=== PATIENT | male | born 1980 | race Caucasian/White ===

== ENCOUNTER 2017-03-17 17:45 | Inpatient (IN) | payer OTHER ==
[~2017-03-17] VITALS: Ht 188 cm; Wt 97.5 kg
[2017-03-17 21:30] VITALS: BP 153/95
[2017-03-17] MEDS ORDERED: METHOCARBAMOL 750 MG TABLET PO PRN (21:30)
[2017-03-17] MEDS ORDERED: LOPERAMIDE HCL 2 MG CAPSULE PO PRN ×4 (21:30)
[2017-03-17] MEDS ORDERED: LORAZEPAM 1 MG TABLET PO PRN (21:30)
[2017-03-17] MEDS ORDERED: ONDANSETRON ODT 4 MG TAB.RAPDIS SL PRN (21:30)
[2017-03-17] MEDS ORDERED: MAGNESIUM HYDROXIDE 30 ML LIQUID UDC PO PRN ×2 (21:30)
[2017-03-17] MEDS ORDERED: MAG HYDROX/AL HYDROX/SIMETH 30 ML LIQUID UDC PO PRN ×2 (21:30)
[2017-03-17] MEDS ORDERED: ACETAMINOPHEN 325 MG TABLET PO PRN ×2 (21:30)
[2017-03-17] MEDS ORDERED: BUPRENORPHINE HCL 2 MG TAB.SUBL SL PRN ×2 (21:30)
[2017-03-17] MEDS ORDERED: MIRALAX 17 GM POWD.PACK PO PRN ×2 (21:30)
[2017-03-17] MEDS ORDERED: CLONIDINE HCL 0.1 MG TABLET PO PRN (21:30)
[2017-03-17] MEDS ORDERED: diphenhydrAMINE 50 MG CAPSULE PO PRN ×2 (21:30)
[2017-03-17] MEDS ORDERED: IBUPROFEN 600 MG TABLET PO PRN (21:30)
[2017-03-17] MEDS ORDERED: LORAZEPAM 2 MG/1 ML VIAL IM PRN ×2 (21:30→22:45)
[2017-03-17] MEDS ORDERED: HYDROXYZINE PAMOATE 25 MG CAPSULE PO PRN ×2 (21:30)
[2017-03-17] MEDS ORDERED: DICYCLOMINE HCL 20 MG TABLET PO PRN ×2 (21:30)
[2017-03-17] MEDS ORDERED: IBUPROFEN 400 MG TABLET PO PRN (21:30)
[2017-03-17] MEDS ORDERED: ONDANSETRON 4 MG/2 ML VIAL IM PRN ×2 (21:30)
--- NOTE | 2017-03-17 21:30 | NUR ---
PRE-ADMISSION NOTE: Patient assessed in intake office at 21:30 on 03/17/2017. Patient is ambulatory with steady gate, stable, A&Ox4, speech is soft and clear. Patient states that he is here for safety detox from Xanax, Methamphetamine, Heroin, Gabapentin. Patient states that he relapsed three months ago and his substances use has steadily increased since that time. Patient states that his last use was Heroin IV: " 2 grams at 16:30 on 03/17/17"; Methamphetamine IV and smoke: "0,25 grams at 09:30 on 03/17/17"; Gabapentin PO: "800 mg at 15:00 on 03/17/2017". Xanax PO: "2 mg at 18:00 on 03/17/2017". COWS 8, CIWA 7: Patient presents with anxiety, agitation, nervousness, headache, tremors, stomach cramps, sweating. Patient denies N/V, and diarrhea. Patient denies SI/HI. VS:T:98'4;HR: 85; BP:153/95; RR: 19 O2 Sat:100%; Pain level ( generalized):"04/17". Patient reports NKA, NKDA. Patient instructed on unit protocol of vitals Q4H and COWS/CIWA assessments. Patient verbalizing understanding and agreement. Will complete admission assessment when patient is brought up to unit. Addendum: 03/18/17 at 0311 by SRINIVAS GONZALEZ RN Xanax PO: "2-4 mg every day. Last used 2 mg tab at 18:00 on 03/16/2017".
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
[2017-03-17 22:21] LABS: BASOPHILS % (AUTO) 0.4 % (0.0-2.0); EOSINOPHILS # (AUTO) 0.1 K/uL (0.0-0.7); EOSINOPHILS % (AUTO) 1.5 % (0.0-7.0); HEMATOCRIT 44.4 % (40-50); HEMOGLOBIN 15.6 G/DL (14.0-18.0); LYMPHOCYTES # (AUTO) 2.7 K/UL (0.8-4.8); LYMPHOCYTES % (AUTO) 31.8 % (20.5-51.5); MEAN CORPUSCULAR HEMOGLOBIN 31.8 UUG (27.0-31.0); MEAN CORPUSCULAR HGB CONC 35 g/dL (32.0-37.0); MEAN CORPUSCULAR VOLUME 90.3 FL (82.0-92.0); MONOCYTES # (AUTO) 0.7 K/UL (0.1-1.30); MONOCYTES % (AUTO) 8.5 % (0.0-11.0); NEUTROPHILS # (AUTO) 4.9 K/UL (1.8-8.9); NEUTROPHILS % (AUTO) 57.8 % (38.5-71.5); PLATELET COUNT (AUTO) 230 K/UL (150-450); RED BLOOD CELL COUNT(AUTO) 4.92 MIL/UL (4.7-6.1); RED CELL DISTRIBUTION WIDTH 11.9 % (11.5-14.5); WHITE BLOOD COUNT (AUTO) 8.4 K/UL (4.0-11.2)
[2017-03-17 22:23] LABS: ETHANOL < 3 MG/DL (0-0)
[2017-03-17 22:26] LABS: ALANINE AMINOTRANSFERASE 142 U/L (16-63); ALBUMIN 4.6 g/dL (3.4-5.0); ALKALINE PHOSPHATASE 103 U/L (50-136); AMYLASE 21 U/L (25-115); ASPARTATE AMINOTRANSFERASE 80 U/L (15-37); BILIRUBIN,TOTAL 0.6 mg/dL (0.2-1.0); CARBON DIOXIDE 28 mmol/L (21-32); CHLORIDE 102 mmol/L (98-107); CREATININE 1.2 mg/dL (0.6-1.3); GFR 69 mL/min (>60); GLUCOSE 95 mg/dL (74-106); LIPASE 75 U/L (73-393); MAGNESIUM 2.3 mg/dL (1.8-2.4); POTASSIUM 3.8 mmol/L (3.5-5.1); SODIUM SERUM 143 mmol/L (136-145); TOTAL PROTEIN, SERUM 9.2 g/dL (6.4-8.2); UREA NITROGEN, BLOOD 22 mg/dL (7-18)
[2017-03-17 22:32] LABS: *AMPHETAMINE, URINE POSITIVE (NEGATIVE); *BARBITURATE, URINE NEGATIVE (NEGATIVE); *CANNABINOID, URINE NEGATIVE (NEGATIVE); *COCCAINE, URINE NEGATIVE (NEGATIVE); *OPIATE, URINE POSITIVE (NEGATIVE); *PHENCYCLIDINE SCREEN,URINE NEGATIVE (NEGATIVE)
[2017-03-17 22:34] LABS: THYROID STIMULATING HORMONE 1.426 mIU/mL (0.358-3.740)
[2017-03-17] MEDS ORDERED: DIAZEPAM 10 MG TABLET PO PRN ×2 (22:45)
[2017-03-17] MEDS ORDERED: DIAZEPAM 5 MG TABLET PO PRN (22:45)
[2017-03-17] MEDS: LORAZEPAM 1 MG TABLET PO PRN (22:48)
--- NOTE | 2017-03-17 22:48 | NUR ---
PRN ATIVAN PO ADMINISTRATION Patient c/o increased anxiety. Patient was assessed. CIWA is 7. Patient presented with anxiety, agitation, nervousness, tremors, sweating, stomach cramps. Patient's educated for actions, adverse reactions, and side effects of Ativan. Patient's verbalizing understanding. PRN Ativan 1 mg 1 tab PO administrated as ordered with full glass of water. Patient tolerated well. Safety measure in the place by hospital policy: Call light within reach, bed in the lowest position and locked, padded rails up x2. Will continue to monitor.
[2017-03-17] MEDS ORDERED: IBUPROFEN 600 MG TABLET ONE (22:54)
--- NOTE | 2017-03-17 22:54 | NUR ---
PRN MOTRIN PO ADMINISTRATION Patient c/o headache - " 04/08" - and ask aid. Patient was assessed. VS WNL. PRN Motrin PO was discussed. Patient's educated for actions, adverse reactions, and side effects of Motrin. Patient's verbalizing understanding. PRN Motrin PO administrated as ordered with full glass of water. Patient tolerated well. Safety measure in the place by hospital policy: Call light within reach, bed in the lowest position and locked, padded rails up x2. Will continue to monitor.
[2017-03-17 22:55] LABS: HIV-1 p24 ANTIGEN NON REACTIVE (NONREACTIVE); HIV-1/2 ANTIBODY NON REACTIVE (NONREACTIVE)
[2017-03-17] MEDS ORDERED: LORAZEPAM 1 MG TABLET ONE (22:55)
--- NOTE | 2017-03-17 23:48 | NUR ---
REASSESSMENT Patient' reassessed. Patient lying on his bed with eyes closed. Breathing is even and unlabored. RR:16. PRN Ativan PO was effective. Safety measure in the place by hospital policy: Call light within reach, bed in the lowest position and locked, padded rails up x2.Will continue to monitor closely.
--- NOTE | 2017-03-17 23:54 | NUR ---
REASSESSMENT Patient is sleeping. Breathing is even and unlabored. RR:16. PRN Motrin PO was effective. Safety measure in the place by hospital policy: Call light within reach, bed in the lowest position and locked, padded rails up x2.Will continue to monitor.
[2017-03-18] VITALS: BP 140/96
--- NOTE | 2017-03-18 00:05 | NUR ---
PRN BENADRYL PO AND PRN BENTYL PO ADMINISTRATION Patient c/o insomnia and stomach cramps. Patient was assessed. VS WNL. Patient was educated for actions, adverse reactions, and side effects of Benadryl and Bentyl. Patient's verbalizing understanding. PRN Benadryl PO and PRN Bentyl PO administrated as ordered with full glass of water. Patient tolerated well. Safety measure in the place by hospital policy: Call light within reach, bed in the lowest position and locked, padded rails up x2. Will continue to monitor.
[2017-03-18] MEDS ORDERED: diphenhydrAMINE 50 MG CAPSULE ONE (00:13)
[2017-03-18] MEDS ORDERED: DICYCLOMINE HCL 20 MG TABLET ONE (00:13)
--- NOTE | 2017-03-18 01:05 | NUR ---
REASSESSMENT Patient is sleeping. Breathing is even and unlabored. RR:16. PRN Benadryl PO and PRN Bentyl PO were effective. Safety measure in the place by hospital policy: Call light within reach, bed in the lowest position and locked, padded rails up x2.Will continue to monitor.
[2017-03-18] MEDS ORDERED: BUPR-51 PO (01:35)
[2017-03-18] MEDS ORDERED: TRAZ-144 PO (01:35)
[2017-03-18] MEDS ORDERED: GABA800T2 PO (01:35)
[2017-03-18] MEDS ORDERED: NALT50TA PO (01:35)
[2017-03-18] MEDS ORDERED: BUPR1FIL3 SL (01:35)
[2017-03-18] MEDS: METHOCARBAMOL 750 MG TABLET PO PRN ×2 (03:04→16:17)
--- NOTE | 2017-03-18 03:04 | NUR ---
PRN ROBAXIN PO ADMINISTRATION Patient c/o muscles spasm. Patient was assessed. VS WNL. PRN Robaxin PO was discussed. Patient's educated for actions, adverse reactions, and side effects of Robaxin. Patient's verbalizing understanding. PRN Robaxin 750 mg I tab PO administrated as ordered with full glass of water. Patient tolerated well. Safety measure in the place by hospital policy: Call light within reach, bed in the lowest position and locked, padded rails up x2. Will continue to monitor.
[2017-03-18] MEDS ORDERED: MAGNESIUM HYDROXIDE 30 ML LIQUID UDC ONE (03:05)
[2017-03-18] MEDS ORDERED: HYDROXYZINE PAMOATE 25 MG CAPSULE ONE (03:12)
[2017-03-18] MEDS: METHOCARBAMOL 750 MG TABLET ONE ×2 (03:56→04:06)
--- NOTE | 2017-03-18 03:57 | NUR ---
PRN MILK OF MAGNESIA PO ADMINISTRATION Patient c/o constipation and ask aid.. Patient was assessed. VS WNL. PRN Milk of Magnesia PO was discussed. Patient's educated for actions, adverse reactions, and side effects of Milk of Magnesia. Patient's verbalizing understanding. PRN Milk of Magnesia 30 ml PO administrated as ordered with full glass of water. Patient tolerated well. Safety measure in the place by hospital policy: Call light within reach, bed in the lowest position and locked, padded rails up x2. Will continue to monitor.
[2017-03-18 04:00] VITALS: BP 127/82
--- NOTE | 2017-03-18 04:04 | NUR ---
REASSESSMENT Patient is lying down in his bed with eyes closed. Breathing is even and unlabored. RR: 15. PRN Robaxin PO was effective. Safety measure in the place by hospital policy: Call light within reach, bed in the lowest position and locked, padded rails up x2. Will continue to monitor.
--- NOTE | 2017-03-18 04:57 | NUR ---
REASSESSMENT Patient is sleeping. Breathing is even and unlabored. RR: 14. PRN Milk of Magnesia PO was effective. Safety measure in the place by hospital policy: Call light within reach, bed in the lowest position and locked, padded rails up x2. Will continue to monitor.
[2017-03-18] MEDS: LORAZEPAM 1 MG TABLET PO PRN (05:09)
[2017-03-18] MEDS ORDERED: LORAZEPAM 1 MG TABLET ONE (05:17)
--- NOTE | 2017-03-18 05:17 | NUR ---
PRN ATIVAN PO ADMINISTRATION Patient c/o increased anxiety. Patient was assessed. CIWA is 7. Patient presented with anxiety, agitation, nervousness, tremors, sweating, stomach cramps.Patient denies N/V, and diarrhea. PRN Ativan 1 mg 1 tab PO administrated as ordered with full glass of water. Patient tolerated well. Safety measure in the place by hospital policy: Call light within reach, bed in the lowest position and locked, padded rails up x2. Will continue to monitor.
--- NOTE | 2017-03-18 06:17 | NUR ---
REASSESSMENT Patient is sleeping. Breathing is even and unlabored. RR: 14. PRN Ativan PO was effective. Safety measure in the place by hospital policy: Call light within reach, bed in the lowest position and locked, padded rails up x2. Will continue to monitor.
--- NOTE | 2017-03-18 07:23 | NUR ---
PRE-ADMISSION NOTE: Patient assessed in intake office at 21:30 on 03/17/2017. Patient is ambulatory with steady gate, stable, A&Ox4, speech is soft and clear. Patient states that he is here for safety detox from Xanax, Methamphetamine, Heroin, Gabapentin. Patient states that he relapsed three months ago and his substances use has steadily increased since that time. Patient states that his last use was Heroin IV" 2 grams at 16:30 on 03/17/17"; Methamphetamine IV and smoke: "0,25 grams at 09:30 on 03/17/17"; Gabapentin PO: "800 mg at 15:00 on 03/17/2017". Xanax PO: "2 mg at 18:00 on 03/17/2017". COWS 8, CIWA 7: Patient presents with anxiety, agitation, nervousness, headache, tremors, stomach cramps, sweating. Patient denies N/V, and diarrhea. Patient denies SI/HI. VS: T 98'4; HR: 85; BP: 153/95; RR: 19 O2 Sat: 100; Pain level ( generalized): "6/10". Patient reports NKA, NKDA. Patient instructed on unit protocol of vitals Q4H and COWS/CIWA assessments. Patient verbalizing understanding and agreement. Will complete admission assessment when patient is brought up to unit. Addendum: 03/18/17 at 0726 by SRINIVAS GONZALEZ RN wrong note
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
--- NOTE | 2017-03-18 07:27 | NUR ---
Start of Shift Notes: Received patient in his room. Alert and oriented x 4. Verbally responsive. Able to make needs known. Respirations even and unlabored. No SOB noted. Skin warm and dry to touch. Abdomen soft and non-distended. BS (+) in all 4 quadrants. No complains of N/V/D or constipation noted. No complains of abdominal discomfort or constipation. Voids independently. Ambulatory ad celso with steady gait. Patient is a 36 year old male admitted for opiate and BZO dependence who was placed on PRNs at this time. Has past medical hx of anxiety, depression, ADHD, chronic back pain, kidney stones, rotator cuff surgery, disectomy and head trauma. NKA. FULL CODE. Regular diet. On fall and seizure precaution. Education patient on her current plan of care for the day and his medication regimen. Encouraged oral fluid intake and encouraged group participation to learn new skills to prevent relapse. Will continue to monitor.
[2017-03-18 08:00] VITALS: BP 133/93
[2017-03-18] MEDS: ONDANSETRON ODT 4 MG TAB.RAPDIS SL PRN (08:19)
--- NOTE | 2017-03-18 08:19 | NUR ---
Zofran 4 mg PO and Clonidine 0.1mg PO given: Patient noted with complains of nausea, anxiety, chills, sweats, hot flashes and restlessness. COWS 8. Medicated patient with Zofran 4 mg and Clonidine 0.1mg PO as ordered. Will monitor for effectiveness.
[2017-03-18] MEDS: CLONIDINE HCL 0.1 MG TABLET PO PRN ×2 (08:20→16:18)
[2017-03-18] MEDS: MULTIVITAMINS,THERAPEUTIC TABLET PO SCH (08:20)
[2017-03-18] MEDS ORDERED: MULTIVITAMINS,THERAPEUTIC TABLET PO SCH (09:00)
[2017-03-18] MEDS ORDERED: TUBERCULIN,PURIF.PROT.DERIV. 5 TU/0.1 ML TEST ID ONE ×2 (09:00)
--- NOTE | 2017-03-18 09:19 | NUR ---
Re-assessment: Per patient, PRN Clonidine and Zofran was effective in reducing nausea, chills, hot flashes, anxiety and sweats.
[2017-03-18] MEDS: BUPRENORPHINE HCL 2 MG TAB.SUBL SL SCH ×4 (09:30→20:16)
--- NOTE | 2017-03-18 10:29 | NUR ---
Subutex 4 mg SL at 0930 not administered: Patient refused Subutex 4 mg SL despite explanation of risk and benefits. Patient states "I am not ready." Notified Dr. Harrison. Per , OK to hold and give 1300 dose as ordered. Will continue to monitor.
--- NOTE | 2017-03-18 10:32 | NUR ---
Ativan 2 mg PO given: Patient noted with CIWA 18 - presented with nausea, tremors, sweats, nervousness, fidgeting, and anxiety. MD Harrison aware. Medicated patient with Ativan 2 mg PO as ordered. Will monitor for effectiveness.
[2017-03-18 12:00] VITALS: BP 116/62
[2017-03-18] MEDS: LORAZEPAM 1 MG TABLET PO SCH ×3 (12:10→20:16)
[2017-03-18 13:04] LABS: *BILIRUBIN,URIN NEGATIVE (NEGATIVE); *BLOOD, URINE NEGATIVE (NEGATIVE); *CLARITY,URINE CLEAR (CLEAR); *COLOR,URINE YELLOW (YELLOW); *KETONES,URINE NEGATIVE (NEGATIVE); *PROTEIN,URINE NEGATIVE (NEGATIVE); LEUKOCYTE ESTERASE ,URINE NEGATIVE (NEGATIVE); NITRITE, URINE NEGATIVE (NEGATIVE); PH,URINE 5.5 (5.0-8.0); UGLUCOSE NEGATIVE (NEGATIVE)
[2017-03-18 13:09] LABS: BACTERIA,URINE FEW /HPF (NONE SEEN); RBC,URINE NONE SEEN /HPF (0-3); SQUAMOUS EPITHELIAL CELL,UR FEW /HPF (NONE SEEN); WBC,URINE 0-3 /HPF (0-3)
--- NOTE | 2017-03-18 13:26 | NUR ---
Subutex 4 mg SL at 1300 not administered: Patient refused Subutex 4 mg SL despite explanation of risk and benefits. Patient states "I know Dr. Harrison spoke to me about it but i still don't feel that I am ready. " Notified Dr. Harrison. Will continue to monitor the patient and provide reinforcement.
[2017-03-18] MEDS ORDERED: TRAZODONE 50 MG TABLET PO PRN (14:45)
[2017-03-18 16:00] VITALS: BP 121/67
--- NOTE | 2017-03-18 16:19 | NUR ---
Subutex 4 mg SL at 1700 not administered: Patient refused Subutex 4 mg SL despite explanation of risk and benefits. Patient states "I know Dr. Harrison spoke to me about it but i still don't feel that I am ready. " Notified Dr. Harrison. Per MD, ok to hold at this time. COWS 9. Will continue to monitor the patient and provide reinforcement.
--- NOTE | 2017-03-18 16:20 | NUR ---
Clonidine 0.1mg PO/Robaxin 750mg PO given: Patient noted to be flushed, anxious, complains of chills, hot flashes, and muscle 5/10 muscle aches. COWS 9/CIWA 14. Medicated patient with Clonidine 0.1mg PO and Robaxin 750 mg PO as ordered. Will monitor for effectiveness.
--- NOTE | 2017-03-18 17:20 | NUR ---
Re-assessment: Per patient PRN Robaxin and Clonidine were effective in reducing patient's muscle aches and pains, chills anxiety and sweats. PL 2.
--- NOTE | 2017-03-18 18:47 | NUR ---
End of Shift Notes: Patient is a 36 year old male admitted for opiate and BZO dependence who was placed on a 5-day Ativan and 5-day Subutex taper as ordered. Ativan taper initiated today. No adverse reactions noted. Patient has been refusing his 0900, 1300 and 1700 dose of Subutex. Per patient, he is not ready and will re-evaluate again tonight. MD Harrison fully aware. Prior to admission, patient was using 2 grams of Heroin IV, 2-4mg of Xanax and 0.25 grams of Methamphetamine x 5 weeks. VS monitored closely q 4 hours. No significant abnormalities noted. Withdrawal symptoms were closely monitored. COWS 8/CIWA 4. Patient presented with nausea, stomach cramps, muscle aches, chills, hot flashes, anxiety and pupil dilation. Medicated patient with Zofran 4 mg ODT and Clonidine 0.1mg PO at 0819 with help after 1 hour. Patient refused Vistaril stating I dont react well to Vistaril. aware. Medicated patient with Ativan 2 mg PO at 1036 for CIWA 18 MD brizuela with help after 1 hour. Last COWS 9/CIWA 14. Seen by MD Acosta with NNO. Unable to participate in group and therapy sessions due to his withdrawal symptoms. All needs met and attended. Will continue to monitor closely.
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
[2017-03-18 20:00] VITALS: BP 120/75
[2017-03-18] MEDS: GABAPENTIN 400 MG CAPSULE PO SCH (20:27)
--- NOTE | 2017-03-19 | NUR ---
VS, CIWA/COWS DEFERRED Assessment deferred d/t patient refusal, patient is sleeping. Breathing is unlabored and even. RR: 14. Safety measure in the place by hospital policy: Call light within reach, bed in the lowest position and locked, padded rails up x2. Will continue to monitor.
[2017-03-19 04:00] VITALS: BP 115/64
[2017-03-19] MEDS: ONDANSETRON ODT 4 MG TAB.RAPDIS SL PRN ×2 (05:22→20:03)
--- NOTE | 2017-03-19 05:22 | NUR ---
PRN ZOFRAN PO AND PRN CLONIDINE PO ADMINISTRATION Patient c/o Nausea and Vomiting x4. Patient was assessed VS WNL. COWS 8;CIWA 9: Patient presented with anxiety, agitation, nervousness, hot flashes, headache, tremors, stomach cramps, nausea, vomiting, and sweating. PRN Zofran 4 mg PO and Clonidine 0.1 mg PO administrated as ordered.Safety measures in the place by hospital policy: call light within reach, bed in the lowest position and locked, bed padded rails up x2. Will monitor for effectiveness.
[2017-03-19] MEDS: CLONIDINE HCL 0.1 MG TABLET PO PRN (05:26)
--- NOTE | 2017-03-19 05:42 | NUR ---
PRN ATIVAN PO ADMINISTRATION Patient c/o increased anxiety and ask PRN Ativan for aid. Patient was assessed CIWA 16. Patient presented with anxiety, agitation, nervousness, tremors, stomach cramps, nausea, fidgeting, and sweating. Doctor Abraham aware, and ordered PRN Ativan 2 mg PO. PRN Ativan 2 mg PO administrated as ordered.Safety measures in the place by hospital policy: call light within reach, bed in the lowest position and locked, bed padded rails up x2. Will continue to monitor closely.
[2017-03-19] MEDS ORDERED: LORAZEPAM 1 MG TABLET PO ONE (05:45)
[2017-03-19] MEDS ORDERED: LORAZEPAM 1 MG TABLET ONE (05:49)
--- NOTE | 2017-03-19 06:22 | NUR ---
REASSESSMENT Patient reassessed. PRN Zofran PO noted to be effective Patient stayed "I feel no nausea now,no vomiting too" Encouraged tincreased fluids intake as tolerated. All needs met, all safety measures in place will continue to monitor.
--- NOTE | 2017-03-19 06:42 | NUR ---
REASSESSMENT Upon reassessment Ativan PO was effective. CIWA decreased from 16 to 10, COWS decreased from 9 to 7. Safety measure in the place by hospital policy: Call light within reach, bed in the lowest position and locked, padded rails up x2. Will continue to monitor.
--- NOTE | 2017-03-19 06:59 | NUR ---
END OF SHIFT NOTE: Patient endorsed to incoming day shift nurse in stable condition. SBAR report given. Patient is a 36 year old male admitted to [facility] on 03/17/17 at 22:05 for Benzodiazepine/Opioid Withdrawal under medical supervision. Patient denies SI/HI. NKA, NKDA. Regular Diet, Full Code, Fall and Seizures Precautions. Patient denies Seizures History. VS at 04:00 T 98'2; HR: 85; BP: 115/64; RR: 16; O2 Sat: 98; Pain level "0/10". Patient c/o Right ear decreased hearing last three days. Doctor Adam Harrison MD notified. Last CIWA 16; COWS 9:Patient presented with anxiety, agitation, nervousness, fidgeting, headache, tremors, stomach cramps, sweating, yawning, bones aches, and N/V. Patient denies diarrhea. Nose has healed scratch. No redness, no open wounds noted. Skin is warm and moist by touch. Encouraged to adequate fluid intake, as tolerated. PRN Zofran PO for N/V, PRN Clonidine PO, PRN Ativan PO has been administrated , and was effective. Patient remains compliant with treatment plan, medications, and diet regime. Patient slept 6 hours, intake 2,388ml, voided x2, vomited x 4 [address] measures [address] the [address] by hospital policy: call light within reach, bed in the lowest position and locked, bed padded rails up x2. Addendum: 03/20/17 at 0400 by SRINIVAS GONZALEZ RN PRN Zofran PO, PRN Clonidine PO, PRN Ativan PO has been administrated, and were effective.
--- NOTE | 2017-03-19 07:30 | NUR ---
start of shift: received pt from night shift supervisor nurse, pt is in stable condition at this time. [facility] for opiate/benzo/meth dependence withdrawal.pt slept 6 hrs pts last ciwa is 9 and cows 7. will monitor pt for A/R to medications. and encourage pt to attend groups and activities.
[2017-03-19 08:06] LABS: HCV AB >11.0 s/co ratio (0.0-0.9); HEPATITIS B CORE AB, IgM Negative (Negative); HEPATITIS B SURFACE AG Negative (Negative)
[2017-03-19 08:30] VITALS: BP 111/92
[2017-03-19] MEDS ORDERED: TUBERCULIN,PURIF.PROT.DERIV. 5 TU/0.1 ML TEST ID ONE (09:00)
[2017-03-19] MEDS: LORAZEPAM 1 MG TABLET PO SCH ×3 (09:02→20:02)
[2017-03-19] MEDS: BUPRENORPHINE HCL 2 MG TAB.SUBL SL SCH ×3 (09:03→20:02)
[2017-03-19] MEDS: DULOXETINE 60 MG CAPSULE.DR PO SCH (09:03)
[2017-03-19] MEDS: GABAPENTIN 400 MG CAPSULE PO SCH ×3 (09:03→20:03)
[2017-03-19] MEDS: MULTIVITAMINS,THERAPEUTIC TABLET PO SCH (09:03)
[2017-03-19 17:09] VITALS: BP 113/64
--- NOTE | 2017-03-19 19:31 | NUR ---
END OF SHIFT NOTE: PT IS IN STABLE CONDITION AT THIS TIME PT VERBALIZED HE WAS ANXIOUS D/T A PHONE CALL WITH THERAPIST. PT STATES HE WILL WAIT FOR SCHEDULED MEDICATIONS.LAST COWS 8 AND CIWA 6. PT TOLERATED TAPER MEDICATIONS WELL NO A/R. TB SKIN TEST WAS ADMINISTERED NO A/R NOTED. PT SLEPT ADEQUATELY THROUGHOUT THE SHIFT PT REFUSED 1200 NOON V/S. WILL ENDORSE PT TO OVERNIGHT CASHIER NURSE.
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
[2017-03-19 20:00] VITALS: BP 123/85
--- NOTE | 2017-03-19 20:03 | NUR ---
PRN ZOFRAN ADMINISTRATION Patient c/o nausea. Patient was assessed. VS WNL. Patient denies vomiting and diarrhea. PRN Zofran RAPIDS discussed with patient. Patient educated for actions, adverse reactions, and side effects of Zofran. Patient's return knowledge back by verbalizing understanding. PRN Zofran administrated as ordered. Patient tolerated well. Safety measure in the place by hospital policy: Call light within reach, bed in the lowest position and locked, padded rails up x2. Will continue to monitor.
--- NOTE | 2017-03-19 21:03 | NUR ---
REASSESSMENT Patient is sleeping. Breathing is even and unlabored. RR:16. PRN Zofran was effective. Safety measure in the place by hospital policy: Call light within reach, bed in the lowest position and locked, padded rails up x2.Will continue to monitor.
[2017-03-20] VITALS: BP 129/70
[2017-03-20 04:00] VITALS: BP 115/63
[2017-03-20] MEDS: METHOCARBAMOL 750 MG TABLET PO PRN (04:50)
[2017-03-20] MEDS: CLONIDINE HCL 0.1 MG TABLET PO PRN (04:51)
--- NOTE | 2017-03-20 04:51 | NUR ---
PRN ROBAXIN PO AND PRN CLONIDINE PO ADMINISTRATION Patient c/o increased anxiety and muscles spasm. Patient was assessed. Ordered PRN Robaxin PO and PRN Clonidine PO was discussed with patient. Patient's educated for actions, adverse reactions, and side effects of Robaxin and Clonidine. Patient returned her knowledge back by verbalizing understanding. PRN Robaxin PO and PRN Clonidine PO administrated as ordered with full glass of water. Patient tolerated well. Safety measures in the place by hospital policy: Call light within reach; Bed in the lowest position and locked; Padded rails up x2. Will to monitor closely.
--- NOTE | 2017-03-20 05:51 | NUR ---
REASSESSMENT Patient is sleeping. Breathing is even and unlabored. RR:14. PRN Robaxin PO and PRN Clonidine PO were effective. Safety measure in the place by hospital policy: Call light within reach, bed in the lowest position and locked, padded rails up x2. Will continue to monitor closely.
--- NOTE | 2017-03-20 07:10 | NUR ---
END OF SHIFT NOTE: Patient endorsed to incoming day shift nurse in stable condition. SBAR report given. Patient is a 36 year old male admitted to [facility] on 03/17/17 at 22:05 for Benzodiazepine/Opioid Withdrawal under medical supervision. Patient denies SI/HI. NKA, NKDA. Regular Diet, Full Code, Fall and Seizures Precautions. Patient denies Seizures History. VS at 04:00 T 98'2; HR: 85; BP: 115/64; RR: 16; O2 Sat: 98; Pain level "0/10". Patient c/o Right ear decreased hearing last three days. Doctor Adam Harrison MD notified. Last CIWA 5; COWS decreased from 8 to 6: Patient presented with anxiety, agitation, nervousness, running nose, headache, tremors, stomach cramps, sweating, yawning, and bones aches. Patient denies N/V and diarrhea. Patient denies SI/HI, and hallucinations. VS at 04:00: T: 98.2; HR: 73; BP: 115/63; RA O2Sat: 95%; RR: 17; Pain level: "0/10". Patient denies SOB and chest pain. Nose has healed scratch. No redness, no open wounds noted. Skin is warm and moist by touch. No redness , no open wounds noted. Encouraged fluid intake, as tolerated. PRN Bentyl PO 20 mg 1 tab PO and PRN Vistaril 50 mg 2 tabs. PO administrated as ordered, and were effective. Patient slept 5 hours, Intake 500 ml, voided x1. Safety measures in the place by hospital policy: call light within reach, bed in the lowest position and locked, bed padded rails up x2.
--- NOTE | 2017-03-20 07:30 | NUR ---
start of shift note: received pt from crisis clinician nurse, pt is in stable condition at this time no s/s of pain or discomfort. pt is admitted to [facility] for opiate/benzo/meth withdrawal/dependence. pt is sleeping at this time. pt is tolerating taper medications. pts last ciwa 5 and last cows 6. will encourage pt to attend groups and activities throughout the shift.
[2017-03-20] MEDS ORDERED: BUPRENORPHINE HCL 2 MG TAB.SUBL SL SCH (09:00)
[2017-03-20] MEDS: DULOXETINE 60 MG CAPSULE.DR PO SCH (09:38)
[2017-03-20] MEDS: MULTIVITAMINS,THERAPEUTIC TABLET PO SCH (09:38)
[2017-03-20] MEDS: GABAPENTIN 400 MG CAPSULE PO SCH ×2 (09:39→15:05)
[2017-03-20] MEDS: LORAZEPAM 1 MG TABLET PO SCH ×4 (09:39→21:57)
[2017-03-20 10:27] VITALS: BP 112/84
[2017-03-20 13:20] VITALS: BP 106/82
[2017-03-20] MEDS: BUPRENORPHINE HCL 2 MG TAB.SUBL SL SCH ×2 (15:04→21:59)
[2017-03-20 18:35] VITALS: BP 114/69
--- NOTE | 2017-03-20 19:01 | NUR ---
END OF SHIFT NOTE: PT IS IN STABLE CONDITION NO S/S OF PAIN OR DISCOMFORT, PT IS ADMITTED TO [facility] FOR OPIATE,BENZO,METH WITHDRAWAL/DEPENDENCE. PT HAS BEEN IN SLEEPING IN BETWEEN MEDICATION PASS AND MEALS. PT HAS NOT JOINED GROUPS OR ACTIVITIES. PT IS ISOLATIVE, PT INQUIRED ABOUT HEP C RESULTS. EXPLAINED TO PT THAT HE HAS BEEN EXPOSED. AND THAT MD WILL CONFIRM AND EXPLAIN RESULTS. MD AWARE OF RESULTS. PTS LAST COWS 1 AND LAST CIWA 3 WILL ENDORSE PT TO ACADEMIC REGISTRAR NURSE
[2017-03-20 20:00] VITALS: BP 106/66
--- NOTE | 2017-03-20 20:00 | NUR ---
1999 Patient received sleeping comfortably in position of comfort. Easily aroused for V/S and nurse assess. Patient responds to nurse's greeting and introduction with, " Huh?, Oh hi, I feel okay". Patient is oriented to person, place, day, date and his personal situation. Easily reoriented to time. Patient's color is pink and his skin is warm, dry and intact. Lung sounds are clear bilaterally and active bowel sounds are noted X 4 abdominal Quads, per auscultation. Patient denies any pain or other discomforts and he offers no requests for anything. Patient states that he has been eating his regular diet tray and taking fluids ad celso, with no real gastric issues so far and he states further that he tries to go to [employer] groups as regularly as is possible for him. Vital signs are: 97.6-59-16 106/66 O2 Sat 96%, CIWA 2, COWS 1. Patient was admitted on 03/17/17 for: Heroin, Xanax, Methamphetamine and Neurontin withdrawal, and he is currently on a 5-Day Ativan medication taper and a 5-Day Subutex medication taper, both of which he has apparently been tolerating well. Patient moves all his extremities fully WNL. Fall/Seizure precautions continue. Patient is cooperative and verbally appropriate when interacting with nurse. Bed is locked and in lowest position, bed rails are up X 2 and call light within patient's easy reach.
[2017-03-20] MEDS: BACLOFEN 10 MG TABLET PO SCH (21:57)
[2017-03-20] MEDS: DICYCLOMINE HCL 20 MG TABLET PO SCH (21:57)
[2017-03-20] MEDS: GABAPENTIN 300 MG CAPSULE PO SCH (21:58)
[2017-03-21] VITALS: BP 101/62
--- NOTE | 2017-03-21 04:00 | NUR ---
Patient refuses to be awakened for V/S to be done at this time.
--- NOTE | 2017-03-21 06:30 | NUR ---
0630 Patient slept a total of 10.25 hours and he was up to the bathroom for 1 void and no stools. Total intake was 600 ml p.o. V/SS afebrile, last CIWA 2, COWS 1 at 0000. No prn medications given this shift. Patient is presently sleeping comfortably in stable condition with eyes closed and respirations even, unlabored at 12.
--- NOTE | 2017-03-21 07:52 | NUR ---
BEGINNING OF SHIFT Patient endorsement report received from warehouse worker 2nd shift nurse, all pertinent information discussed. patient with admitting Dx: Opiate/BZO dependence Patient admitted on the: 03/17/2017. PMH: Anxiety, depression, ADHD, chronic back pain. Patient currently on 5 day ativan taper and 5 day subutex taper, patient is currently on day 4 of ativan taper and day 4 of subutex taper well tolerated, no ASE noted, and is currently under close observation. As per warehouse worker 2nd shift patient slept for 10 hours, received no PRNs during warehouse worker 2nd shift. Patient with last ciwa score of: 2 and last cow score of: 1. Patient received awake, alert and oriented x4, educated patient regarding plan of care for the day and medication regimen with good verbal understanding. safety measures in place. will continue to monitor.
[2017-03-21 08:07] VITALS: BP 110/63
[2017-03-21] MEDS: BUPRENORPHINE HCL 2 MG TAB.SUBL SL SCH ×3 (09:38→21:15)
[2017-03-21] MEDS: BACLOFEN 10 MG TABLET PO SCH ×3 (09:38→21:18)
[2017-03-21] MEDS: GABAPENTIN 300 MG CAPSULE PO SCH ×3 (09:38→21:15)
[2017-03-21] MEDS: DULOXETINE 60 MG CAPSULE.DR PO SCH (09:38)
[2017-03-21] MEDS: MULTIVITAMINS,THERAPEUTIC TABLET PO SCH (09:38)
[2017-03-21] MEDS: DICYCLOMINE HCL 20 MG TABLET PO SCH ×3 (09:38→21:13)
[2017-03-21] MEDS: LORAZEPAM 1 MG TABLET PO SCH ×3 (09:38→21:13)
[2017-03-21 13:00] VITALS: BP 110/63
[2017-03-21 17:39] VITALS: BP 108/63
[2017-03-21] MEDS ORDERED: MAGNESIUM CITRATE 296 ML BOTTLE PO PRN (18:15)
[2017-03-21] MEDS ORDERED: BISACODYL 5 MG TABLET.DR PO PRN (18:15)
--- NOTE | 2017-03-21 18:49 | NUR ---
END OF SHIFT Patient alert and oriented x4, vital signs stable during shift. Patient continues on 5 day Ativan taper and 5 day Subutex taper as ordered, well tolerated, no ASE noted. 0900 assessment patient presented with: yawning, mild anxiety and barely sweating with cow score of: 2 and ciwa score of: 2; 1300 assessment patient presented with: mild anxiety with cow score of: 1 and ciwa score of:1. 1700 assessment patient presented with: mild anxiety with cow score of: 1 and ciwa score of: 1. Patient was administered no PRN during shift.Patients PPD to left f/a was read, negative in results, 0mm induration. Patient encouraged adequate PO fluid intake as tolerated. Encouraged to attend group therapies/sessions to learn new coping skills to prevent relapse, denies any SI/HI. Safety measures in place. call light kept with in reach. all needs met and rendered. patient endorsed to shift production supervisor nurse, all pertinent information discussed.
[2017-03-21 20:00] VITALS: BP 122/78
--- NOTE | 2017-03-21 20:00 | NUR ---
1999 Patient received resting quietly in bed. Patient aroused easily for vital signs and nurse assess. Patient returns nurse's greeting with a head nod and, " Hi, I'm doing okay". Patient is oriented to person, place, day, date, time and his personal situation. Patient states that he is eating his regular diet, taking fluids ad celso and trying to go to [id number] groups 'as best' as he can, though he did not attend PM group tonight. Vital signs are: 98.7-90-16 122/78, O2 Sat 97%, COWS 2, CIWA 2. Patient denies any pain or other discomforts at this time and he voices no requests or c/o anything presently. Patient was admitted on 03/17/17 for: Heroin, Xanax, Methamphetamine and Neurontin withdrawal, and he is currently on a 5-Day Ativan medication taper and 5-Day Subutex medication taper, both of which he has been apparently tolerating well. Fall/Seizure precautions continue. Patient is cooperative and verbally appropriate when interacting with nurse, though he uses head movements in place of verbal answers at times and his mood/affect is guarded and somewhat flat. Patient moves all his extremities fully WNL. Bed is locked and in lowest position, bed rails are up X 1 and call light within patient's easy reach.
[2017-03-21] MEDS ORDERED: DOCUSATE SODIUM 100 MG CAPSULE PO SCH (21:00)
[2017-03-22] VITALS: BP 114/74
[2017-03-22 04:00] VITALS: BP 118/71
--- NOTE | 2017-03-22 06:30 | NUR ---
0630 Patient slept a total of 4.5 hours and he had 2 voids and 1 stools. Total intake was 1,355 ml p.o. V/SS afebrile, COWS 1 and CIWA 1 at 0400. No Prn medications given this shift. Patient is presently sleeping comfortably in stable condition with eyes closed and respirations unlabored at 12.
--- NOTE | 2017-03-22 07:10 | NUR ---
Start of shift note SBAR report rcv'd. Pt was admitted for opiate and benzo dependence. Pt has a PMH of anxiety, depression, ADHD, and chronic back pain. Pt is on a 5 day ativan and 5 day subutex taper and tolerating well. Pt has NKA, is a full code and on a regular diet. Pt has no complaints at this time. All needs addressed at this time. Safety precautions in place. Will continue to monitor pt.
[2017-03-22 08:00] VITALS: BP 110/68
[2017-03-22 08:44] LABS: ALANINE AMINOTRANSFERASE 111 U/L (16-63); ALBUMIN 3.6 g/dL (3.4-5.0); ALKALINE PHOSPHATASE 114 U/L (50-136); ASPARTATE AMINOTRANSFERASE 34 U/L (15-37); BILIRUBIN,TOTAL 0.1 mg/dL (0.2-1.0); CALCIUM 9.1 mg/dL (8.5-10.1); CARBON DIOXIDE 31 mmol/L (21-32); CHLORIDE 106 mmol/L (98-107); GFR 85 mL/min (>60); GLUCOSE 122 mg/dL (74-106); POTASSIUM 4.4 mmol/L (3.5-5.1); SODIUM SERUM 144 mmol/L (136-145); TOTAL PROTEIN, SERUM 7.5 g/dL (6.4-8.2); UREA NITROGEN, BLOOD 8 mg/dL (7-18)
[2017-03-22] MEDS: DOCUSATE SODIUM 250 MG CAPSULE PO SCH (08:50)
[2017-03-22] MEDS: MULTIVITAMINS,THERAPEUTIC TABLET PO SCH (08:50)
[2017-03-22] MEDS: DICYCLOMINE HCL 20 MG TABLET PO SCH ×3 (08:50→21:28)
[2017-03-22] MEDS: GABAPENTIN 300 MG CAPSULE PO SCH ×3 (08:50→21:28)
[2017-03-22] MEDS: DULOXETINE 60 MG CAPSULE.DR PO SCH (08:51)
[2017-03-22] MEDS: LORAZEPAM 1 MG TABLET PO SCH ×2 (08:51→21:28)
[2017-03-22] MEDS: BUPRENORPHINE HCL 2 MG TAB.SUBL SL SCH ×2 (08:51→21:27)
[2017-03-22] MEDS: BACLOFEN 10 MG TABLET PO SCH ×3 (08:51→21:28)
--- NOTE | 2017-03-22 08:58 | NUR ---
MD communication Pt states that he has R ear pain/discomfort and said that he can't hear well out of it. Dr Harrison notified. Pt states that he does not want anything further for pain at this time. Instructed pt to notify staff if he decides he would like something further for pain. Pt verbalized his understanding.
[2017-03-22 09:08] LABS: BASOPHILS % (AUTO) 0.3 % (0.0-2.0); EOSINOPHILS # (AUTO) 0.3 K/uL (0.0-0.7); EOSINOPHILS % (AUTO) 2.6 % (0.0-7.0); HEMATOCRIT 46.3 % (40-50); HEMOGLOBIN 16.2 G/DL (14.0-18.0); LYMPHOCYTES # (AUTO) 3.9 K/UL (0.8-4.8); LYMPHOCYTES % (AUTO) 40.2 % (20.5-51.5); MEAN CORPUSCULAR HEMOGLOBIN 31.5 UUG (27.0-31.0); MEAN CORPUSCULAR HGB CONC 35 g/dL (32.0-37.0); MEAN CORPUSCULAR VOLUME 90.1 FL (82.0-92.0); MONOCYTES # (AUTO) 0.8 K/UL (0.1-1.30); MONOCYTES % (AUTO) 8.1 % (0.0-11.0); NEUTROPHILS # (AUTO) 4.6 K/UL (1.8-8.9); NEUTROPHILS % (AUTO) 48.8 % (38.5-71.5); PLATELET COUNT (AUTO) 265 K/UL (150-450); RED BLOOD CELL COUNT(AUTO) 5.13 MIL/UL (4.7-6.1); RED CELL DISTRIBUTION WIDTH 11.8 % (11.5-14.5); WHITE BLOOD COUNT (AUTO) 9.6 K/UL (4.0-11.2)
[2017-03-22 09:39] LABS: BILIRUBIN,DIRECT < 0.1 mg/dL (0.0-0.2)
[2017-03-22 12:00] VITALS: BP 109/57
[2017-03-22] MEDS: CARBAMIDE PEROXIDE OTIC DROP 15 ML BOTTLE RIGHT EAR SCH ×2 (12:13→21:29)
[2017-03-22] MEDS: NEOMY/POLYMYX B/HC OTIC SUSP 10 ML BOTTLE RIGHT EAR SCH ×2 (12:46→17:56)
--- NOTE | 2017-03-22 15:06 | NUR ---
Non-administration of medications Pt is sleeping soundly in his bed, respirations are even and unlabored. Held pt 1500 medications d/t sleeping. Dr Harrison aware. NNO. Will continue to monitor pt.
[2017-03-22 16:00] VITALS: BP 131/78
--- NOTE | 2017-03-22 19:20 | NUR ---
End of shift note Pt was admitted for opiate and benzo dependence. Pt has a PMH of anxiety, depression, ADHD, and chronic back pain. Pt is on a 5 day Ativan and 5 day subutex taper and tolerating well. Pt has NKA, is a full code and on a regular diet. Pt has been started on antibiotics for a new onset R ear infection along with Debrox for ear wax. Pt is tolerating well. Pt 1500 medications were held d/t sedation. Pt has no complaints at this time. Pt has a recent COWS of 4 and CIWA of 3 at 1600. Will endorse SBAR to oncoming nurse. Pt ate 100% of all meals, drank 2250ml of fluids, had 3 voids and 2 BM's during the shift.
--- NOTE | 2017-03-22 19:30 | NUR ---
START OF SHIFT NOTE : Pt. is 36 years old male with admitting Dx: Opiate/BZO dependence Patient admitted on the: 03/17/2017. PMH: Anxiety, depression, ADHD, chronic back pain. Patient currently on 5 day ativan taper and 5 day subutex taper, no ASE noted, and is currently under close observation. Currently pt is resting in his room in stable condition. Breathing normal no SOB noted. Respiration even non labored. Pt denies any pain at this time. Pt is encouraged to notify staff of any changes in condition or of any concerns, educated patient regarding plan of care for the next day and medication regimen with good verbal understanding. Pt verbalized an understanding. All safety measures in place; side rails up x 2, bed locked and in low position, and call light with reach. Will continue to monitor closely and offer help.
[2017-03-22 20:00] VITALS: BP 121/81
--- NOTE | 2017-03-23 06:49 | NUR ---
END OF SHIFT NOTE : Pt. is 36 years old male with admitting Dx: Opiate/BZO dependence Patient admitted on the: 03/17/2017. PMH: Anxiety, depression, ADHD, chronic back pain. Patient currently on 5 day ativan taper and 5 day Subutex taper, no ASE noted, and is currently under close observation. Currently pt is resting in his room in stable condition. Breathing normal no SOB noted. Respiration even non labored. Pt remains compliant with the treatment plan. No PRNs were given during my shift. V/S remain WNL. RR=16, even and unlabored, lungs clear upon auscultation, abdomen soft and non- distended. Pt denies nausea, vomiting and diarrhea. LAST CIWA=3 ,COWS= 2 at 0400 , INTAKE= 1105 ml, voided x 2, slept 7 hours. Safety measures in place : bed on lowest position with side rails x2 up for safety, call light within reach. Will continue to monitor closely and offer help.
--- NOTE | 2017-03-23 07:18 | NUR ---
Start of shift note SBAR report rcv'd from mold shifter nurse. Pt was admitted for opiate and benzo dependence. Pt has NKA, is a full code and on a regular diet. Pt has a PMH of anxiety, depression, ADHD, and chronic back pain and has had multiple. Pt is on a 5 day ativan and 5 day subutex taper and tolerating well without any ASE. Pt is currently resting in his bed, pt has no complaints at this time. Safety measures in place, will continue to monitor pt. All needs addressed at this time.
[2017-03-23 08:00] VITALS: BP 139/81
[2017-03-23] MEDS ORDERED: BUPRENORPHINE HCL 2 MG TAB.SUBL SL SCH (09:00)
[2017-03-23] MEDS: MULTIVITAMINS,THERAPEUTIC TABLET PO SCH (09:23)
[2017-03-23] MEDS: GABAPENTIN 300 MG CAPSULE PO SCH ×3 (09:23→21:25)
[2017-03-23] MEDS: BACLOFEN 10 MG TABLET PO SCH ×2 (09:23→14:45)
[2017-03-23] MEDS: DOCUSATE SODIUM 250 MG CAPSULE PO SCH (09:23)
[2017-03-23] MEDS: NEOMY/POLYMYX B/HC OTIC SUSP 10 ML BOTTLE RIGHT EAR SCH ×3 (09:24→17:07)
[2017-03-23] MEDS: DULOXETINE 60 MG CAPSULE.DR PO SCH (09:24)
[2017-03-23] MEDS: CARBAMIDE PEROXIDE OTIC DROP 15 ML BOTTLE RIGHT EAR SCH ×2 (09:24→21:25)
[2017-03-23] MEDS: DICYCLOMINE HCL 20 MG TABLET PO SCH ×3 (09:24→21:25)
[2017-03-23 12:00] VITALS: BP 133/82
--- NOTE | 2017-03-23 15:00 | NUR ---
Medications held Pt is sleeping soundly, held [address] Harrison is aware, will continue to monitor pt. Pt has a recent COWS of 4 and CWIA of 3 and VS are WNL, pt has no complaints of pain or discomfort.
[2017-03-23 16:00] VITALS: BP 121/70
[2017-03-23 16:53] LABS: *AMPHETAMINE, URINE NEGATIVE (NEGATIVE); *BARBITURATE, URINE NEGATIVE (NEGATIVE); *CANNABINOID, URINE NEGATIVE (NEGATIVE); *COCCAINE, URINE NEGATIVE (NEGATIVE); *OPIATE, URINE NEGATIVE (NEGATIVE); *PHENCYCLIDINE SCREEN,URINE NEGATIVE (NEGATIVE)
[2017-03-23] MEDS ORDERED: Ibuprofen PO (17:38)
[2017-03-23] MEDS ORDERED: Duloxetine Hcl PO (17:38)
[2017-03-23] MEDS ORDERED: Docusate Sodium PO (17:38)
[2017-03-23] MEDS ORDERED: HYDR-3895 PO (17:38)
[2017-03-23] MEDS ORDERED: Baclofen PO (17:38)
[2017-03-23] MEDS ORDERED: Gabapentin PO (17:38)
[2017-03-23] MEDS ORDERED: DICY20TA28 PO (17:38)
[2017-03-23] MEDS ORDERED: CARB15DR12 RIGHT EAR (17:38)
--- NOTE | 2017-03-23 18:51 | NUR ---
End of shift note Pt was admitted for opiate and benzo dependence.Pt has NKA, is a full code and on a regular diet. Pt has a PMH of anxiety, depression, ADHD, and chronic back pain. Pt has successfully completed a 5 day Ativan and 5 day subutex taper without any ASE. Pt states that he feels ready for discharge tomorrow. Pt has a recent COWS of 3 and a CIWA of 3 at 1600. Pt is tolerating his antibiotics for a new onset R ear infection well and states that his ear feels "better today than yesterday". Pt 1500 medications were held d/t pt wanting to take a nap. Pt has no complaints at this time. Will endorse SBAR to oncoming nurse. Pt ate 100% of lunch and dinner and 75% of his breakfast, drank 2855ml of fluids, had 4 voids and 1 BM's during the shift.
[2017-03-23] MEDS ORDERED: BACLOFEN 20 MG TABLET PO PRN (19:00)
--- NOTE | 2017-03-23 19:15 | NUR ---
Start of shift note Received report from day shift nurse. Pt is a 36 yo male, A+Ox4, presenting to [facility] for Opiate/Benzo/Methamphetamine dependence. Pt has NKA, is Full code status and on Regular diet. Pt is on Fall and Seizure precautions. Pt has HX of Anxiety, Depression, ADHD, Chronic back pain, Kidney stone removal, and Rotator cuff SX. Pt has completed 5 day Ativan and Subutex tapers, tolerated well, and is due for discharge tomorrow. No s/s of distress noted at this time. Respirations even and unlabored. Will continue to monitor.
[2017-03-23 20:20] VITALS: BP 128/70
[2017-03-24 00:12] VITALS: BP 139/73
[2017-03-24 04:20] VITALS: BP 108/79
--- NOTE | 2017-03-24 07:02 | NUR ---
End of shift note Pt is a 36 yo male, A+Ox4, presenting to [facility] for Opiate/Benzo/Methamphetamine dependence. Pt has NKA, is Full code status and on Regular diet. Pt is on Fall and Seizure precautions. Pt has HX of Anxiety, Depression, ADHD, Chronic back pain, Kidney stone removal, and Rotator cuff SX. Pt has completed 5 day Ativan and Subutex tapers, tolerated well, and is due for discharge today. Pt slept for a total of 5 HRS. Last COWS: 1 and Last CIWA: 1 @ 0400. No s/s of distress noted at this time. Respirations even and unlabored. Will endorse to day shift nurse.
--- NOTE | 2017-03-24 07:45 | NUR ---
START OF SHIFT Received report from analytics consultant nurse from 03/17/17 for heroin, Xanax and methamphetamine dependence. Pt has completed ordered 5 day Ativan and 5 day Subutex taper. Pt s/s have been managed well with ordered medication. Most recent COWS is 1, most recent CIWA is 1. V/S remain WNL. Pt slept for 5 hours. No PRN medications were needed or administered at night. Pt remains stable. Hx of Hep C, anxiety, depression, ADHD, chronic back pain, kidney stones, rotator cuff repair and head trauma. Pt has a right ear infection and is receiving medication, tolerating well. Remains seizure free. All needs met at this time. Safety precautions are in place. Will continue to monitor.
[2017-03-24 08:24] VITALS: BP 113/74
[2017-03-24] MEDS: DOCUSATE SODIUM 250 MG CAPSULE PO SCH (09:00)
[2017-03-24] MEDS: NEOMY/POLYMYX B/HC OTIC SUSP 10 ML BOTTLE RIGHT EAR SCH ×2 (09:00→13:00)
[2017-03-24] MEDS: CARBAMIDE PEROXIDE OTIC DROP 15 ML BOTTLE RIGHT EAR SCH (09:00)
[2017-03-24] MEDS: MULTIVITAMINS,THERAPEUTIC TABLET PO SCH (09:58)
[2017-03-24] MEDS: DULOXETINE 60 MG CAPSULE.DR PO SCH (09:58)
[2017-03-24] MEDS: DICYCLOMINE HCL 20 MG TABLET PO SCH (09:58)
[2017-03-24] MEDS: GABAPENTIN 300 MG CAPSULE PO SCH (09:59)
[2017-03-24 12:00] VITALS: BP 118/77
--- NOTE | 2017-03-24 13:35 | NUR ---
D/C NOTE Pt is A/O x4. V/S remain WNL. Pt denies SI/HI or hallucinations. Pt shows no s/s of acute withdrawal at this time, and is stable. MD has medically cleared pt for d/c . Education on Hepatitis C, smoking cessation and medication side effects provided. Pt verbalizes understanding. All pt belongings are in belonging bag, including prescriptions, and home medications. Refuses PNU vaccination. Pt is being accompanied by NANOTECHNOLOGY ENGINEERING TECHNICIAN at this time to be transported to rehab. All needs met.
== END 2017-03-24 13:35 | disposition other institution (70) | DRG 895 ==
LOC: SRC 21:03
PROVIDERS: ADMIT Internal Medicine; ATTEND Internal Medicine
PROC: HZ2ZZZZ Detoxification Services for Substance Abuse Treatment (ICD-10-PCS; principal; 2017-03-17)
PROC: HZ31ZZZ Individual Counseling for Substance Abuse Treatment, Behavioral (ICD-10-PCS; 2017-03-18)
PROC: HZ41ZZZ Group Counseling for Substance Abuse Treatment, Behavioral (ICD-10-PCS; 2017-03-21)
DX: F11.23 Opioid dependence with withdrawal (principal); F15.20 Other stimulant dependence, uncomplicated; F13.230 Sedative, hypnotic or anxiolytic dependence with withdrawal, uncomplicated; Z81.3 Family history of other psychoactive substance abuse and dependence; Z81.8 Family history of other mental and behavioral disorders; F17.210 Nicotine dependence, cigarettes, uncomplicated; G89.29 Other chronic pain; F90.9 Attention-deficit hyperactivity disorder, unspecified type; F41.9 Anxiety disorder, unspecified; E86.0 Dehydration; H61.21 Impacted cerumen, right ear; K59.03 Drug induced constipation; Z87.442 Personal history of urinary calculi; F32.9 Major depressive disorder, single episode, unspecified; B19.20 Unspecified viral hepatitis C without hepatic coma; M54.5 Low back pain
CPT/HCPCS: 36415; 70030-TC; 80307; 80324; 80346; 80361; 83690; 83735; 84443; 85025; 86580; 86592; 86705; 86803; 87086; 87340; 87521; 87806; G6040-TC; Q0162; Q0163